=== PATIENT | male | born 1950 | race Caucasian/White ===

== ENCOUNTER 2018-08-06 09:03 | Emergency (ER) | payer OTHER, MEDICARE ==
[~2018-08-06] VITALS: Ht 180.3 cm; Wt 68.0 kg
--- NOTE | ~2018-08-06 | EKG ---
[place] [address] [facility] [place] [address] ELECTROCARDIOGRAM REPORT Name: ABBI LEIJA Room #: [id number] Admission: 08/06/18 Attend Phys: Discharge: Date of : 54 Report #: [id number] THIS REPORT FOR: //name// [facility] ED Test Date: 2018-08-06 Test Time: 09:32:22 Pat Name: ABBI LEIJA Department: Room: Gender: [employer] Broker: MARGA : 1950 Requested By: Jeff Fallon Order Number: [id number] MD: Chung Patel Measurements Intervals [place] Rate: 73 P: 62 LA: 172 QRS: 67 QRSD: 101 T: 53 QT: 400 QTc: 441 Interpretive Statements Sinus rhythm Baseline wander Nonspecific ST-T wave changes Compared to ECG 10/20/2005 15:29:27 No significant changes Electronically Signed On 08-06-2018 10:47:15 [employer] by Chung Patel [email or web address] <ELECTRONICALLY SIGNED> By: Chung Patel MD 08/06/18 1047 0932 0932 Chung Patel MD /KADE
[~2018-08-06 09:03] MED LIST: FISH OIL 1,0001 EAC5 PO; RESTORIL15 MG PO; SIMVASTATIN40 MG PO
[2018-08-06 09:18] LABS: ABSOLUTE NEUTROPHILS 3.5 thou/uL (1.4-8.2); BASOPHILS 0.4 % (0.0-2.0); EOSINOPHILS 0.8 % (0.0-3.0); HEMATOCRIT 42.2 % (42.0-52.0); HEMOGLOBIN 14.6 gm/dL (14.0-18.0); LYMPHOCYTES 25.9 % (24.0-44.0); MCH 35.8 pg (26.0-34.0); MCHC 34.5 g/dL (28.0-37.0); MONOCYTES 8.1 % (1.0-8.0); PLATELET COUNT 208 thou/uL (150-400); POLYS 64.8 % (36.0-66.0); RBC 4.06 mil/uL (4.50-6.00); RDW 12.4 % (10.5-14.5); WBC 5.4 thou/uL (4.0-11.0)
[2018-08-06 09:27] LABS: ANION GAP 7 mmol/L (7-16); BUN 15 mg/dL (7-18); CALCIUM 9.5 mg/dL (8.5-10.1); CHLORIDE 100 mmol/L (98-107); CO2 29 mmol/L (21-32); CREATININE 0.5 mg/dL (0.7-1.3); GLUCOSE 119 mg/dL (74-106); POTASSIUM 4.1 mmol/L (3.5-5.1); SODIUM 136 mmol/L (136-145)
[2018-08-06 09:35] LABS: ALBUMIN 3.9 g/dL (3.4-5.0); SGOT 18 U/L (15-37); SGPT 22 U/L (30-65); TOTAL BILIRUBIN 0.8 mg/dL (<0.1-1.0); TOTAL PROTEIN 7.7 g/dL (6.4-8.2); TROPONIN-I <0.06 ng/mL (<0.06)
[2018-08-06 09:59] LABS: URINE BILIRUBIN NEGATIVE (Negative); URINE BLOOD TRACE (Negative); URINE CLARITY HAZY; URINE COLOR YELLOW; URINE GLUCOSE-RANDOM* NEGATIVE (Negative); URINE KETONES NEGATIVE (Negative); URINE LEUKOCYTES-REFLEX 2+ (Negative); URINE NITRITE-REFLEX POSITIVE (Negative); URINE PROTEIN (DIPSTICK) NEGATIVE (Negative); URINE SPECIFIC GRAVITY 1.015 (1.005-1.035); URINE UROBILINOGEN 0.2 E.U./dl (0.2-1.0)
[2018-08-06] MEDS ORDERED: NORVASC5 MG PO (10:09)
[2018-08-06] MEDS ORDERED: PRAVACHOL40 MG PO (10:09)
[2018-08-06] MEDS ORDERED: OXYBUTYNIN 5 MG5 M2 PO (10:10)
[2018-08-06] MEDS ORDERED: TOPROL XL25 MG PO (10:10)
[2018-08-06 10:18] LABS: CASTS None Seen /LPF (None Seen); SQUAMOUS 0-3 Few /LPF (0-3); URINE RBC 0-2 Rare /HPF (0-2); URINE WBC-REFLEX 6-15 Few /HPF (0-5)
[2018-08-06 10:19] LABS: CRYSTALS None Seen /LPF (None Seen)
[2018-08-06] MEDS ORDERED: CIPRO500 MG PO (11:15)
[2018-08-06 11:43] VITALS: BP 173/95
== END 2018-08-06 11:48 | disposition home or self-care (01) ==
LOC: ER 09:03
PROVIDERS: Physician Assistant
DX: N39.0 Urinary tract infection, site not specified (principal); G82.20 Paraplegia, unspecified; R53.1 Weakness; R42 Dizziness and giddiness; E78.00 Pure hypercholesterolemia, unspecified; Z90.89 Acquired absence of other organs

== ENCOUNTER → 2020-06-08 | Outpatient (CLI) | payer OTHER, MEDICARE ==
[~2020-06-08] MED LIST changes: +CIPRO500 MG PO; +NORVASC5 MG PO; +OXYBUTYNIN 5 MG5 M2 PO; +PRAVACHOL40 MG PO; +TOPROL XL25 MG PO
== END ==
LOC: RAD 10:42
PROVIDERS: ATTEND Internal Medicine
DX: J43.9 Emphysema, unspecified (principal)